=== PATIENT | male | born 1930 | race Caucasian/White ===

== ENCOUNTER 2017-03-19 12:21 | Emergency (ER) | payer MEDICARE, OTHER ==
[~2017-03-19] VITALS: Ht 162.6 cm; Wt 90.0 kg
[~2017-03-19 12:21] MED LIST: BENHCT2012 PO; CLOP75TA19 PO; DEXL60CA2 PO; DUTA0.5C PO; ICOS1CAP PO; LEVA15HF6 INH; MELO-110 PO; MONT10TA24 PO; PRAM0.5T PO; ROSU20TA PO; SERT50TA6 PO; TAMS-14 PO; VALS80TA2 PO
[2017-03-19] MEDS ORDERED: SOD CHLORIDE 0.9% 500 ML IV STA (12:44)
[2017-03-19 12:45] VITALS: Ht 162.6 cm; Wt 90.0 kg
[2017-03-19 12:55] LABS: BASOPHIL # 0.1 10^3/ul (0.0-0.1); BASOPHILS % 0.6 % (0.0-2.0); EOSINOPHILS # 0.1 10^3/ul (0.0-0.5); EOSINOPHILS % 1.4 % (0.0-7.0); HEMATOCRIT 36.4 % (42.0-52.0); HEMOGLOBIN 12.5 g/dl (14.0-18.0); LYMPHOCYTES # 2.7 10^3/ul (0.8-2.9); LYMPHOCYTES % 35.6 % (15.0-51.0); MEAN CORPUSCULAR HEMOGLOBIN 31.6 pg (29.0-33.0); MEAN CORPUSCULAR HGB CONC 34.3 g/dl (32.0-37.0); MEAN CORPUSCULAR VOLUME 92.2 fl (82.0-101.0); MEAN PLATELET VOLUME 10.3 fl (7.4-10.4); MONOCYTE # 0.6 10^3/ul (0.3-0.9); MONOCYTES % 7.4 % (0.0-11.0); NEUTROPHILS % 54.7 % (39.0-77.0); PLATELET COUNT 200 10^3/UL (140-415); RED BLOOD COUNT 3.95 10^6/ul (4.70-6.10); RED CELL DISTRIBUTION WIDTH 13.3 % (11.5-14.5); WHITE BLOOD COUNT 7.7 10^3/ul (4.8-10.8)
[2017-03-19 13:02] LABS: INR 1.05; PARTIAL THROMBOPLASTIN TIME 25.3 Sec (25.0-35.0); PROTIME 13.7 Sec (12.2-14.2); PT RATIO 1.1
[2017-03-19 13:14] LABS: ALANINE AMINOTRANSFERASE 41 IU/L (13-69); ALBUMIN 3.7 g/dl (3.3-4.9); ALBUMIN/GLOBULIN RATIO 1.27; ALKALINE PHOSPHATASE 61 IU/L (42-121); ANION GAP 12 (8-16); ASPARTATE AMINO TRANSFERASE 30 IU/L (15-46); BILIRUBIN,INDIRECT 0.4 mg/dl (0-1.1); BILIRUBIN,TOTAL 0.4 mg/dl (0.2-1.3); BLOOD UREA NITROGEN 19 mg/dl (7-20); CALCIUM 8.8 mg/dl (8.4-10.2); CARBON DIOXIDE 27 mmol/L (21-31); CHLORIDE 106 mmol/L (97-110); CREATININE 1.09 mg/dl (0.61-1.24); GLUCOSE 108 mg/dl (70-220); POTASSIUM 3.6 mmol/L (3.5-5.1); SODIUM 141 mmol/L (135-144); TOTAL PROTEIN 6.6 g/dl (6.1-8.1)
[2017-03-19 13:26] LABS: B-TYPE NATRIURETIC PEPTIDE 65 PG/ML (0-450)
[2017-03-19 13:38] LABS: TROPONIN-I < 0.012 ng/ml (0.00-0.12)
[2017-03-19] MEDS ORDERED: AMIO400T5 PO (13:57)
[2017-03-19] MEDS ORDERED: TADA5TAB5 PO (13:57)
[2017-03-19] MEDS ORDERED: EZET10TA3 PO (13:58)
[2017-03-19] MEDS ORDERED: ADV25050 INHALATION (13:59)
[2017-03-19] MEDS ORDERED: ROSU40TA35 PO (14:00)
--- NOTE | 2017-03-19 14:11 | RADRPT ---
PROCEDURE: XR Chest. CLINICAL INDICATION: 86-year-old male with chest pain. TECHNIQUE: Single frontal view of the chest was obtained. COMPARISON: Chest x-ray 06/27/2014 09:45 p.m. FINDINGS: The soft tissues are generous. There is a dual chamber cardiac pacemaker over the upper left chest w all with electrode leads at the level of the right atrium and right ventricle. 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 The left ventricle is enlarged but stable. The cardiomediasti nal silhouette and hilar structures are normal. The pulmonary vasculature is normal. There are vasc ular calcifications in the left sided aortic arch. There are interstitial infiltrates in the left hi lar area and left lower lobe partially obscuring the left diaphragm. The left costophrenic angle is obscured. The right costophrenic angle is normal. IMPRESSION: 1. Left ventricular enlargement with interstitial markings in the left hilar area and additional com pressive atelectasis/infiltrate in the left lower lobe. Compressive atelectasis or acute interstitia l infiltrates in the left hilar area are considered part of the differential diagnosis. 2. Obscuration of the left costophrenic angle may be the result of infiltrate. A pleural effusion a t the site is not excluded. 3. Dual chamber cardiac pacemaker. 4. Atherosclerotic vascular disease. RPTAT:AAJJ Physician Amaris Date Time Electronically viewed and signed by Jayden Funes Physician on 03/19/2017 14:11 DAVID/
[2017-03-19 14:25] LABS: URINE BLOOD (Dip) POC Negative (NEGATIVE)
[2017-03-19 14:42] LABS: ADD UMIC YES; UR ASCORBIC ACID NEGATIVE (NEGATIVE); UR BILIRUBIN (Dip) NEGATIVE (NEGATIVE); UR BLOOD (Dip) NEGATIVE (NEGATIVE); UR CLARITY CLEAR (CLEAR); UR COLOR YELLOW (YELLOW); UR GLUCOSE (Dip) NEGATIVE (NEGATIVE); UR KETONES (Dip) NEGATIVE (NEGATIVE); UR LEUKOCYTE ESTERASE (Dip) NEGATIVE Leu/ul (NEGATIVE); UR MUCUS FEW /HPF (NONE SEEN); UR NITRITE (Dip) NEGATIVE (NEGATIVE); UR RBC 0 /HPF (0-5); UR SPECIFIC GRAVITY (Dip) 1.015 (1.003-1.030); UR TOTAL PROTEIN (Dip) 1+ mg/dl (NEGATIVE); UR UROBILINOGEN (Dip) 1+ mg/dL (NEGATIVE)
[2017-03-19] MEDS ORDERED: IOHEXOL 100 ML ONE (15:02)
[2017-03-19] MEDS ORDERED: SOD CHLORIDE 0.9% 100 ML ONE (15:02)
--- NOTE | 2017-03-19 16:38 | RADRPT ---
PROCEDURE: PULMONARY CTA CLINICAL INDICATION: Dyspnea. TECHNIQUE: Pulmonary CTA was completed. 3-D coronal and sagittal reformatted images were obtained. O ne or more of the following dose reduction techniques were used: Automated exposure control, adjust ment of the mA and/or kV according to patient size or use of iterative reconstruction technique. fro m the axial source images. DLP (mGy.cm): 726.44 CTDl vol: 58.09. IV contrast: 100 ml Isovue 370 COMPARISON: Chest CT with IV contrast from 04/11/2008. FINDINGS: There is no filling defect in the pulmonary arteries. The thoracic aorta is of normal caliber. Ther e is no aortic dissection. The cardiac size is normal. There is no pleural or pericardial effusion. There is no bulky thoracic adenopathy. The lungs are clear without consolidation or suspicious pulmonary nodule. The survey of the upper abdomen shows diffusely dilated and fluid-filled esophagus similar to the pr ior exam. Fatty liver is noted. There is a left posterior diaphragmatic hernia containing fat. The bony structures are unremarkable. IMPRESSION: 1. No pulmonary embolus or aortic dissection. 2. Chronic diffuse dilation of the esophagus. 3. Fatty liver. 4. Left posterior diaphragmatic hernia containing fat. RPTAT: HMZ .Jaxon Peña MD, Date Time Electronically viewed and signed by .Jaxon Peña MD, on 03/19/2017 16:37 .Z/
[2017-03-19 17:47] VITALS: BP 119/75; PULSE 71; RESP 18
--- NOTE | 2017-03-19 18:03 | ERA ---
ER Documentation Chief Complaint Date/Time DATE: 03/19/17 TIME: 17:56 Chief Complaint c/o weakness HPI 86-year-old male came in by ambulance because he is with family had an episode where he is sitting on the couch and family witnessed him lose consciousness for a few seconds before he was back in normal. He does complain of some shortness of breath without chest pain. He has no other symptoms and has not had any fevers or chills lately. ROS All systems reviewed and are negative except as per history of present illness. Medications Home Meds Reported Medications Rosuvastatin Calcium* (Crestor*) 40 Mg Tablet, 40 MG PO QHS, #30 TAB 03/19/17 Salmeterol Xinaf/Fluticasone* (Advair*) 250-50 Diskus Inhaler, 1 INH INHALATION BID, #1 INHALER 03/19/17 Ezetimibe* (Zetia*) 10 Mg Tablet, 10 MG PO DAILY, TAB 03/19/17 Amiodarone Hcl* (Amiodarone Hcl*) 400 Mg Tablet, 400 MG PO DAILY, TAB 03/19/17 Tadalafil (Cialis) 5 Mg Tablet, 5 MG PO DAILY Y for NEEDED, TAB 03/19/17 Olmesartan-Hydrochlorothiazide (Benicar HCT) 20-12.5 Mg Tablet, 1 TAB PO DAILY, #30 TAB 04/27/16 Dexlansoprazole (Dexilant) 60 Mg Cap., 60 MG PO DAILY, #30 CAP 04/27/16 Pramipexole* (Pramipexole*) 0.5 Mg Tablet, 0.5 MG PO HS, TAB 04/27/16 Montelukast Sodium* (Montelukast Sodium*) 10 Mg Tablet, 10 MG PO DAILY, #30 TAB 04/27/16 Sertraline Hcl* (Sertraline Hcl*) 50 Mg Tablet, 50 MG PO DAILY, #30 TAB 04/27/16 Dutasteride* (Avodart*) 0.5 Mg Capsule, 0.5 MG PO DAILY, CAP 04/27/16 Icosapent Ethyl (VASCEPA) 1 Gm Capsule, 2 GM PO BID, CAP 04/27/16 Tamsulosin Hcl* (Flomax*) 0.4 Mg Cap.er.24h, 0.4 MG PO BID, CAP 12/18/14 Clopidogrel Bisulfate (Plavix) 75 Mg Tablet, 75 MG PO DAILY 11/05/12 Discontinued Reported Medications Levalbuterol* (Xopenex* HFA) 15 Gm Inha, 2 PUFFS INH Q4H Y for WHEEZING AND SOB , INHALER 04/27/16 Rosuvastatin Calcium* (Crestor*) 20 Mg Tablet, 20 MG PO DAILY, #30 TAB 04/27/16 Meloxicam* (Mobic*) 15 Mg Tablet, 15 MG PO DAILY, #30 TAB 04/27/16 Valsartan* (Diovan*) 80 Mg Tablet, 80 MG PO DAILY 11/05/12 Allergies Allergies: Coded Allergies: morphine (Unverified Allergy, Severe, SWEATING, HYPOTENSION, 03/19/17) PMhx/Soc History of Surgery: Yes (COLON RESECTION 2007, PACEMAKER, SKIN CA SURGERY, CATARACT) Anesthesia Reaction: No Hx Neurological Disorder: No Hx Respiratory Disorders: No Hx Cardiac Disorders: Yes (BRADYCARDIA, ) Hx Psychiatric Problems: No Hx Miscellaneous Medical Probl: No Hx Alcohol Use: Yes (VODKA) Hx Substance Use: No Hx Tobacco Use: Yes Smoking Status: Never smoker Physical Exam Vitals Vital Signs Date Time Temp Pulse Resp B/P Pulse Ox O2 Delivery O2 Flow Rate FiO2 03/19/17 17:47 71 18 119/75 99 Room Air 03/19/17 17:02 69 20 114/66 99 Room Air 03/19/17 13:20 72 20 100/68 99 Nasal Cannula 2.0 03/19/17 12:45 98.1 60 18 98/61 99 Physical Exam Const: [] No distress Head: Atraumatic Eyes: Normal Conjunctiva, EOMI, PRL ENT: Normal External Ears, Nose and Mouth. Neck: Full range of motion..~ No meningismus. Resp: Clear to auscultation bilaterally Cardio: Regular rate and rhythm, no murmurs Abd: Soft, non tender, non distended. Normal bowel sounds Skin: No petechiae or rashes Back: No midline or flank tenderness Ext: No cyanosis, Trace pedal edema, distal pulses intact all 4 extremities Neur: Awake and alertAnd oriented 3, no focal deficits Psych: Normal Mood and Affect Result Diagram: 03/19/17 1245 03/19/17 1245 Results 24 hrs Laboratory Tests Test 03/19/17 12:45 03/19/17 14:20 03/19/17 14:31 White Blood Count 7.710^3/ul Red Blood Count 3.9510^6/ul Hemoglobin 12.5g/dl Hematocrit 36.4% Mean Corpuscular Volume 92.2fl Mean Corpuscular Hemoglobin 31.6pg Mean Corpuscular Hemoglobin Concent 34.3g/dl Red Cell Distribution Width 13.3% Platelet Count 78456^3/UL Mean Platelet Volume 10.3fl Neutrophils % 54.7% Lymphocytes % 35.6% Monocytes % 7.4% Eosinophils % 1.4% Basophils % 0.6% Nucleated Red Blood Cells % 0.0/100WBC Neutrophils # (Manual) 4.210^3/ul Lymphocytes # 2.710^3/ul Monocytes # 0.610^3/ul Eosinophils # 0.110^3/ul Basophils # 0.110^3/ul Nucleated Red Blood Cells # 0.010^3/ul Prothrombin Time 13.7Sec Prothrombin Time Ratio 1.1 INR International Normalized Ratio 1.05 Activated Partial Thromboplast Time 25.3Sec Sodium Level 141mmol/L Potassium Level 3.6mmol/L Chloride Level 106mmol/L Carbon Dioxide Level 27mmol/L Anion Gap 12 Blood Urea Nitrogen 19mg/dl Creatinine 1.09mg/dl Glucose Level 108mg/dl Lactic Acid Level 1.8mmol/L Calcium Level 8.8mg/dl Total Bilirubin 0.4mg/dl Direct Bilirubin 0.00mg/dl Indirect Bilirubin 0.4mg/dl Aspartate Amino Transf (AST/SGOT) 30IU/L Alanine Aminotransferase (ALT/SGPT) 41IU/L Alkaline Phosphatase 61IU/L Troponin I < 0.012ng/ml B-Type Natriuretic Peptide 65PG/ML Total Protein 6.6g/dl Albumin 3.7g/dl Globulin 2.90g/dl Albumin/Globulin Ratio 1.27 Urine Color YELLOW Urine Clarity CLEAR Urine pH 6.0 Urine Specific [place] 1.015 Urine Ketones NEGATIVEmg/dL Urine Nitrite NEGATIVEmg/dL Urine Bilirubin NEGATIVEmg/dL Urine Urobilinogen 1+mg/dL Urine Leukocyte Esterase NEGATIVELeu/ul Urine Microscopic RBC 0/HPF Urine Microscopic WBC 1/HPF Urine Mucus FEW/HPF Urine Hemoglobin NEGATIVEmg/dL Urine Glucose NEGATIVEmg/dL Urine Total Protein 1+mg/dl Bedside Urine pH (LAB) 6.0 Bedside Urine Protein (LAB) 1+ Bedside Urine Glucose (UA) Negative Bedside Urine Ketones (LAB) Negative Bedside Urine Blood Negative Bedside Urine Nitrite (LAB) Negative Bedside Urine Leukocyte Esterase (L Negative Current Medications Medications (Trade) Dose Ordered Sig/Presley Route PRN Reason Start Time Stop Time Status Last Admin Dose Admin Sodium Chloride 500 ml @ 500 mls/hr Q1H STAT IV 03/19/17 12:44 03/19/17 13:43 DC 03/19/17 12:55 Iohexol 100 ml @ ud STK-MED ONCE .ROUTE 03/19/17 15:02 03/19/17 15:03 DC 03/19/17 15:02 Sodium Chloride (NS) 100 ml @ ud STK-MED ONCE .ROUTE 03/19/17 15:02 03/19/17 15:03 DC 03/19/17 15:02 Procedures/MDM Brief episode of syncope in elderly male. No signs of infection. No signs of cardiac abnormality. Patient initially had a chest x-ray with the radiologist believes could have few different pathologies. CT was performed and the patient has no acute lung abnormalities. He is feeling well otherwise. Believe this is a case of syncope which is safe to discharge. Had been monitored on a telehealth nurse educator for greater than 3 hours with no arrhythmias. Giving strict return precautions the ER as well as primary care follow-up. EKG interpretation: Normal sinus rhythm rate 60, left axis deviation, no ST or T -wave changes concerning for acute ischemia, nonspecific ST abnormality, normal intervals. cable swager interpretation: Normal sinus rhythm without arrhythmia Chest x-ray interpretation: Obscuration of the costophrenic angles, no pneumothorax, no obvious infiltrate, no fractures CT chest interpretation: I see no acute process. No filling defect to suggest pulmonary embolism, no dissection, no infiltrates, no pulmonary edema, no fractures. Departure Diagnosis: Primary Impression: Syncope Additional Impression: Dyspnea Condition: Stable Patient Instructions: Causes of Syncope Additional Instructions: Call your primary care doctor TOMORROW for an appointment during the next 1-2 days.See the doctor sooner or return here if your condition worsens before your appointment time. JUSTIN STEARNS DO Mar 19, 2017 18:03
== END 2017-03-19 17:49 | disposition home or self-care (01) ==
LOC: E/R 12:21
DX: R55 Syncope and collapse (principal); R06.00 Dyspnea, unspecified; Z85.828 Personal history of other malignant neoplasm of skin; Z95.0 Presence of cardiac pacemaker
CPT/HCPCS: 36415; 71010; 71275; 80053; 81001; 83605; 83880; 84484; 85025; 85610; 85730; 93005; 99285; J7040; P9612; Q9967; 81003